=== PATIENT | female | born 1985 ===

== ENCOUNTER 2018-10-15 14:53 | Emergency (ER) | payer SELFPAY ==
[2018-10-15 15:35] VITALS: BMI 29.0
--- NOTE | 2018-10-15 15:57 | ED PDOC ---
Arrival/HPI - General Chief Complaint: Weakness/Neurological Deficit Time Seen by Provider: 10/15/18 14:55 Historian: Patient - History of Present Illness Narrative History of Present Illness (Text): 32 y/o female with PMH of D&C in May presents to the ED c/o lightheadedness, low back pain, and right leg pain x 2 weeks. Symptoms are intermittent. Associated intermittent palpitations and nausea. LMP 09/19/18. Denies injury, fe william, chills, saddle anesthesia, bowel/bladder incontinence, extremity weakness/numbness, paresthesias, neck pain, chest pain, SOB, headache, sore throat, vision changes, ear pain, sinus congestion, urinary symptoms, vomiting, diarrhea, constipation or any other associated complaints. Past Medical History - Provider Review Nursing Documentation Reviewed: Yes - Psychiatric Hx Substance Use: No Family/Social History - Physician Review Nursing Documentation Reviewed: Yes Family/Social History: No Known Family HX Smoking Status: Never Smoked Hx Alcohol Use: No Hx Substance Use: No Allergies/Home Meds Allergies/Adverse Reactions: Allergies diclofenac Allergy (Verified 10/15/18 15:37) ANAPHYLAXIS Home Medications: Home Meds Medication Instructions Recorded Confirmed No Known Home Med 10/15/18 10/15/18 Review of Systems - Review of Systems Constitutional: Normal. absent: Fevers Eyes: Normal. absent: Vision Changes ENT: Normal. absent: Sore Throat, Sinus Congestion Respiratory: Normal. absent: SOB Cardiovascular: Normal. absent: Chest Pain Gastrointestinal: Abdominal Pain, Nausea. absent: Vomiting Genitourinary Female: Normal. absent: Dysuria, Frequency, Vaginal Bleeding, Vaginal Discharge Musculoskeletal: Back Pain Skin: Normal. absent: Rash Neurological: Dizziness. absent: Headache Physical Exam Vital Signs Reviewed: Yes Temperature: Afebrile Blood Pressure: Normal Pulse: Regular Respiratory Rate: Normal Appearance: Positive for: Well-Appearing, Non-Toxic, Comfortable Pain Distress: None Mental Status: Positive for: Alert and Oriented X 3 - Systems Exam Head: Present: Atraumatic, Normocephalic Pupils: Present: PERRL Extroacular Muscles: Present: EOMI Conjunctiva: Present: Normal Mouth: Present: Moist Mucous Membranes Neck: Present: Normal Range of Motion. No: Meningeal Signs Respiratory/Chest: Present: Clear to Auscultation, Good Air Exchange. No: Respiratory Distress, Accessory Muscle Use Cardiovascular: Present: Regular Rate and Rhythm, Normal S1, S2, Peripheal Pulses Present Abdomen: Present: Tenderness (mild suprapubic), Normal Bowel Sounds. No: Distention, Peritoneal Signs Back: Present: Normal Inspection. No: CVA Tenderness Upper Extremity: Present: Normal Inspection, Normal ROM. No: Cyanosis, Edema Lower Extremity: Present: Normal Inspection, Normal ROM. No: Edema Neurological: Present: GCS=15, Speech Normal, Motor Func Grossly Intact, Normal Sensory Function, Gait Normal Skin: Present: Warm, Dry, Normal Color. No: Rashes Psychiatric: Present: Alert, Oriented x 3, Normal Insight, Normal Concentration, Normal Affect, Normal Mood Medical Decision Making ED Course and Treatment: Initial Plan: * Labs * EKG * UA, POC preg * Transvaginal US * Right leg venous duplex Transvaginal ultrasound shows fibroid otherwise unremarkable Venous duplex prelim read negative 18:28 Pt asking to leave AMA prior to labwork being drawn. Provided with copy of ultrasound report. Advised PMD and gynecology followup. Encounter translated with critical care educator service and the help of Nurse Quiles The patient is choosing to leave against medical advice. I have personally explained to the patient that choosing to do so may result in permanent bodily harm, disability, or . I have discussed at great length that without further evaluation and monitoring there may be unforeseen circumstances and/or deterioration causing permanent bodily harm or as a result of their choice. The patient is alert, oriented, and shows the mental capacity to make clear decisions regarding the patients health care at this time. The patient continues to wish to leave against medical advice. In light of the patients decision to leave against medical advice, follow-up has been arranged and the patient is aware of the importance to following up as instructed. The patient has been advised that they should return to the emergency room immediately if they change their mind at any time, or if their condition begins to change or worsen in any way. - Lab Interpretations Lab Results: Lab Results 10/15/18 18:05: Urine Color Yellow, Urine Appearance Clear, Urine pH 6.0, Ur Specific [place] >= 1.030, Urine Protein Trace H, Urine Glucose (UA) Negative, Urine Ketones Negative, Urine Blood Moderate H, Urine Nitrate Negative, Urine Bilirubin Negative, Urine Urobilinogen 0.2, Ur Leukocyte Esterase Moderate H, Urine RBC 15 - 20 H, Urine WBC 5 - 10 H, Ur Epithelial Cells Many H I have reviewed the lab results: Yes Disposition/Present on Arrival - Present on Arrival Any Indicators Present on Arrival: No History of DVT/PE: No History of Uncontrolled Diabetes: No Urinary Catheter: No History of Decub. Ulcer: No History Surgical Site Infection Following: None - Disposition Have Diagnosis and Disposition been Completed?: No Diagnosis: Fibroid, Left against medical advice, Leg pain, Lightheadedness Disposition: AGAINST MEDICAL ADVICE Disposition Time: 18:15 Condition: GUARDED Forms: [employer] ([place])
[2018-10-15] MEDS ORDERED: Sodium Chloride 0.9% 1,000 ML IV STA (16:09)
[2018-10-15 16:50] VITALS: RESP 17; TEMP 97.9
--- NOTE | 2018-10-15 17:43 | US ---
PROCEDURE: Right lower extremity venous US HISTORY: Leg pain and swelling. Evaluate for DVT. PHYSICIAN(S): Rigo Son M.D. TECHNIQUE: Duplex sonography and color-flow Doppler with graded compression were used to evaluate the deep venous system of the right lower extremity. FINDINGS: The visualized deep venous system of the right lower extremity is sonographically normal and compressible. Normal waveforms and augmentation are seen. There is no sonographic evidence for deep venous thrombosis in the visualized segments of the right lower extremity. IMPRESSION: 1. No sonographic evidence for deep venous thrombosis in the visualized segments of the right lower extremity.
--- NOTE | 2018-10-15 17:54 | US ---
Date of service: 10/15/2018 HISTORY: suprapubic pain, low back pain COMPARISON: None available. TECHNIQUE: Transvaginal pelvic ultrasound was performed with longitudinal and transverse images submitted for interpretation. FINDINGS: UTERUS: Measures 6.6 x 3.5 x 4.4 cm. Normal in size and appearance, retroverted. Probable tiny subserosal fibroid 6 mm greatest dimension at the posterior mid body. ENDOMETRIUM: Measures 10.0 mm in diameter. Unremarkable trilaminar endometrium appreciated. CERVIX: No cervical abnormality identified. RIGHT OVARY: Measures cm. No solid mass. Normal flow. LEFT OVARY: Measures cm. No solid mass. Normal flow. FREE FLUID: No significant free fluid noted. OTHER FINDINGS: None. IMPRESSION: Likely small fibroid sub serosal in location midbody posterior fundus. Examination otherwise appears unremarkable.
[2018-10-15 18:18] LABS: URINE BILIRUBIN NEGATIVE (NEGATIVE); URINE BLOOD MODERATE (NEGATIVE); URINE GLUCOSE (UA) NEGATIVE (NEGATIVE); URINE LEUKOCYTE ESTERASE MODERATE Leu/uL (NEGATIVE); URINE PROTEIN TRACE mg/dL (<30 mg/dL); URINE UROBILINOGEN 0.2 E.U./dL (<1 E.U./dL)
[2018-10-15 18:22] LABS: URINE APPEARANCE CLEAR (CLEAR); URINE COLOR YELLOW (YELLOW)
[2018-10-15 18:27] LABS: URINE EPITHELIAL CELLS MANY /hpf (0-5); URINE RBC 15 - 20 /hpf (0-2)
[2018-10-15 19:26] VITALS: BP 113/74; PULSE 75; O2SAT 99
== END 2018-10-15 18:23 | disposition left against medical advice (07) ==
LOC: ED 14:53
DX: D25.9 Leiomyoma of uterus, unspecified (principal); R42 Dizziness and giddiness; M79.604 Pain in right leg